=== PATIENT | male | born 1955 | race Caucasian/White ===

== ENCOUNTER 2021-03-25 21:09 | Emergency (ER) | payer OTHER ==
[~2021-03-25] VITALS: Ht 157.5 cm; Wt 72.6 kg
[~2021-03-25 21:09] MED LIST: FLAGYL500MG PO; LEVAQUIN750 MG PO
[2021-03-25] MEDS ORDERED: METFORMIN HCL500 MG PO (21:21)
[2021-03-26] MEDS ORDERED: KETO10TA2 PO (02:09)
[2021-03-26] MEDS ORDERED: CEPHALEXIN500 MG PO (02:09)
== END 2021-03-26 03:11 | disposition home or self-care (01) ==
LOC: ER 21:09
DX: S01.02XA Laceration with foreign body of scalp, initial encounter (principal); M54.2 Cervicalgia; W18.09XA Striking against other object with subsequent fall, initial encounter; Y93.89 Activity, other specified; Y92.018 Other place in single-family (private) house as the place of occurrence of the external cause; Y99.8 Other external cause status

== ENCOUNTER 2021-04-12 10:41 | Emergency (ER) | payer OTHER ==
[~2021-04-12] VITALS: Ht 157.5 cm; Wt 85.3 kg
[~2021-04-12 10:41] MED LIST changes: +CEPHALEXIN500 MG PO; +KETO10TA2 PO; +METFORMIN HCL500 MG PO
[2021-04-12] MEDS ORDERED: ATORVASTATIN CA10 MG PO (11:04)
== END 2021-04-12 13:45 | disposition home or self-care (01) ==
LOC: ER 10:41
DX: Z48.02 Encounter for removal of sutures (principal)